=== PATIENT | male | born 1945 ===

== ENCOUNTER → 2022-01-18 17:39 | Outpatient (CLI) | payer MEDICARE, SELFPAY ==
--- NOTE | ~2022-01-18 | DEXA_ITS ---
Bone Density Report Name: JOHN CASTILLO Age: 76 Sex: Male Ethnicity: White Date of : 1945 Indication: screening for osteoporosis; height loss; prior fracture; Referring Provider: PETER, JONH Zavala Study: Bone densitometry was performed. Exam Date: January 18, 2022 Accession number: [id number] Bone Density: Region BMD T-score Z-score Classification AP Spine (L1-L4) 1.289 1.8 2.9 Normal Femoral Neck (Left) 0.793 -1.0 0.4 Normal Total Hip (Left) 1.111 0.5 1.4 Normal Femoral Neck (Right) 0.831 -0.7 0.7 Normal Total Hip (Right) 1.157 0.8 1.7 Normal Total Hip Mean 1.134 0.7 1.6 Normal World Health Organization criteria for BMD impression classify patients as: Normal (T-score at or above -1.0), Osteopenia (T-score between -1.0 and -2.5), or Osteoporosis (T-score at or below -2.5). 10-year Fracture Risk: FRAX not reported because: All T-scores for Spine Total, Hip Total, Femoral Neck at or above -1.0 Prior hip or vertebral fracture Clinical Information Provided by Patient: Have had a previous hip or vertebral fracture Has had a low trauma fracture Patient maximum height was 71 No regular weight bearing exercise Drinks caffeinated beverages Impression: The patient has normal bone mass. The patient has risk factors, including: previous fracture. Discussion: INCREASED RISK OF FRACTURE DUE TO HISTORY OF LOW TRAUMA FRACTURE. The patient's previous fracture puts the patient at high risk of a future fracture. In untreated patients, the risk of osteoporotic fracture increases approximately two-fold for each 1.0 SD decrease in T-score. Low bone density is not the only risk factor for fracture; also consider factors such as patient's age, frailty or poor health, risk of falling, risk of injury, previous osteoporotic fracture, family history of osteoporosis, cigarette smoking, low body weight, etc. Not everyone with a low trauma fracture has osteoporosis; osteomalacia and other metabolic bone disorders should also be considered. Patients who have osteoporosis should be evaluated for specific diseases and conditions (secondary causes) that may cause or contribute to bone loss and fracture risk. National Osteoporosis Foundation (NOF) recommends pharmacologic intervention for patients with a prior low trauma hip or vertebral fracture regardless of BMD T-score. The patient should follow a healthful lifestyle (good nutrition with adequate calcium and vitamin D, and appropriate weight-bearing exercise). Follow-Up: Consider a repeat BMD and Vertebral Fracture Assessment (VFA) exam in 2 years or sooner if medically necessary, to reassess this patient's status. Reported by: DO on 01/18/2022 6:14:00 PM. Reviewed, dictated and finalized at location A[facility]ef[facility] SANCHEZ
== END ==
PROVIDERS: Visit Provider Nurse Practitioner Gerontology
DX: S32.010A Wedge compression fracture of first lumbar vertebra, initial encounter for closed fracture (principal); X58.XXXA Exposure to other specified factors, initial encounter
CPT/HCPCS: 77080